=== PATIENT | male | born 1970 | race Caucasian/White ===

== ENCOUNTER → 2017-01-20 | Outpatient (CLI) | payer OTHER ==
[~2017-01-20] MED LIST: IBUP-1050 PO; LISI-725 PO
[2017-01-20 10:36] LABS: ALB/GLOB RATIO 0.9 (0.9-2); ALKALINE PHOSPHATASE 95 U/L (45-117); ALT/SGPT 36 U/L (12-78); AST/SGOT 18 U/L (15-37); BLOOD UREA NITROGEN 20 mg/dl (7-18); BUN/CREATININE RATIO 23.2 (10-20); CALCIUM 8.3 mg/dl (8.5-10.1); CARBON DIOXIDE 28 mmol/L (21-32); CHLORIDE 107 mmol/L (98-107); CHOLESTEROL 156 mg/dl (0-200); CHOLESTEROL/HDL RATIO 3.7; CREATININE 0.87 mg/dl (0.60-1.40); GLUCOSE 94 mg/dl (70-99); HDL CHOLESTEROL 42 mg/dl; LDL CHOLESTEROL CALCULATED 74 mg/dl; POTASSIUM 3.7 mmol/L (3.5-5.1); SODIUM 142 mmol/L (136-145); TRIGLYCERIDES 200 mg/dl (0-150); VERY LOW DENSITY LIPOPROT CALC 40 mg/dl
== END | disposition home or self-care (01) ==
LOC: C.LAB 09:07
PROVIDERS: ATTEND Family Medicine
DX: I10 Essential (primary) hypertension (principal); E66.01 Morbid (severe) obesity due to excess calories; M54.9 Dorsalgia, unspecified

== ENCOUNTER → 2017-06-24 | Outpatient (CLI) | payer OTHER | END | disposition home or self-care (01) | LOC: C.RDSM 19:03 | PROVIDERS: ATTEND Physical Medicine & Rehabilitation | DX: M54.9 Dorsalgia, unspecified (principal) ==

== ENCOUNTER 2017-07-23 17:38 | Emergency (ER) | payer OTHER ==
[~2017-07-23] VITALS: Ht 167.6 cm; Wt 161.9 kg
[2017-07-23 18:00] VITALS: Ht 167.6 cm; Wt 161.9 kg
[2017-07-23] MEDS ORDERED: LISI-787 PO (18:21)
[2017-07-23] MEDS ORDERED: BACL10TA PO (18:22)
[2017-07-23] MEDS ORDERED: ATEN50TA8 PO (18:22)
[2017-07-23] MEDS ORDERED: HYDR-5688 PO (18:24)
[2017-07-23 18:39] VITALS: BP 189/94; PULSE 93; TEMP 36.5; O2SAT 94
--- NOTE | 2017-07-24 14:54 | EMERGENCY ROOM VISIT NOTE ---
ED Visit Note First contact with patient: 17:57 CHIEF COMPLAINT: Toothache. HISTORY OF PRESENT ILLNESS: Mr. Sarabia is a 47-year-old white male who ambulates into the complaining of dental pain. Historically patient reports he has history dental disease but has not been able to follow-up with the dentist for multiple years because he has had no dental insurance. He goes on to report that he had a crown over the left maxillary area that was no longer present. He said he believes he may have swallowed the crown 3 days ago but is unsure all he knows is that the crown is missing. He reports he has been having ongoing progressive dental pain in the left maxillary area. He describes this as a deep achy and throbbing sensation. He rates his discomfort 8/10. The pain is nonradiating. The pain worsens with palpation of the gum and the decayed teeth in this area. As well as chewing. He has not identified any alleviating factors related to the pain. He reports he has been taken over- the-counter medication without relief of his discomfort. He denies any associated symptoms including fevers, chills, sweats, skin eruptions, facial swelling, sore throat, upper respiratory tract symptoms, difficulty swallowing, decreased appetite, nausea/vomiting. REVIEW OF SYSTEMS: As noted above in History of Present Illness. 8 body systems were reviewed with this patient and found to be negative unless noted above otherwise. PMH: Hypertension, status post lumbar spinal fusion. CURRENT MEDICATION: Patient denies.. ALLERGIES TO MEDICATION: Patient denies. SOCIAL HISTORY: Patient is unemployed; he feels safe in his home environment; he denies tobacco and alcohol use. PHYSICAL EXAM: Vital Signs: Date Time Temp Pulse Resp B/P (MAP) Pulse Ox O2 Delivery O2 Flow Rate FiO2 07/23/17 18:00 36.5 93 18 189/94 94 Room Air General: 47 year-old white male in mild distress due to pain, nontoxic appearing , afebrile and hemodynamically stable. Neurological: Awake, alert and oriented to person, place and time. Answering questions appropriately and following commands. Skin: Warm, dry and pink. No facial swelling or erythema. HEENT: Atraumatic and normocephalic. Oral cavity is moist and pink. Airway is patent. Uvula is midline and no abscesses are seen. Speech is normal. Patient has poor dentition throughout his mouth. He has all his teeth decayed to the gingiva. There is mild erythema and edema over the left maxillary gingiva. There is moderate tenderness throughout this area but I was not able to palpate any abscesses. No cervical or submandibular lymphadenopathy. ED COURSE: Patient is assessed as noted above. Patient is educated about his findings and instructed on his treatment plan; he verbalizes understanding and agreement with this plan. CLINIC IMPRESSION: Dental pain. DISPOSITION: Patient discharged home in stable condition; prior to departure she was reassessed and subjectively reported she was feeling the same. PLAN: Comfort measures were discussed with the patient including a sliding pain medication scale of ibuprofen, acetaminophen and [place]; his name was checked on state database and no red flags were noted and he was given appropriate narcotic precautions. Other comfort measures discussed with the patient was the use of dental wax and a room temperature mechanical soft/liquid diet. Patient was encouraged to brush teeth, flossing gargle with salt water for 5 times a day. Patient was encouraged to avoid tobacco use. Patient was encouraged to contact his insurance company tomorrow and inform them of today's ED visit and request referral to dentist/oral surgery that is covered by his insurance. Patient was encouraged return the ED for worsening/uncontrolled pain, fevers, facial swelling or any new/concerning symptoms.
== END 2017-07-23 18:43 | disposition home or self-care (01) ==
LOC: C.EDB 17:39 → C.EDD 18:43
DX: K08.89 Other specified disorders of teeth and supporting structures (principal); I10 Essential (primary) hypertension